=== PATIENT | male | born 1980 | race African-American/Black ===

== ENCOUNTER 2021-02-19 16:22 | Emergency (ER) | payer MEDICAID ==
[~2021-02-19] VITALS: Ht 177.8 cm; Wt 113.9 kg
[2021-02-19 18:29] VITALS: BP 141/77
--- NOTE | 2021-02-19 18:29 | NUR ---
Patient discharged to home in stable condition. Written and verbal after care instructions given. Patient verbalizes understanding of instructions. Stressed follow up or return to ER for worsening s/s.
[2021-02-19] MEDS ORDERED: BENZ-13 PO (18:32)
== END 2021-02-19 18:41 | disposition home or self-care (01) ==
LOC: ER 16:35
DX: J02.9 Acute pharyngitis, unspecified (principal); J34.89 Other specified disorders of nose and nasal sinuses; Z20.822 Contact with and (suspected) exposure to COVID-19; J45.909 Unspecified asthma, uncomplicated
CPT/HCPCS: 71045; 86403; 87070; A4663